=== PATIENT | female | born 2000 | race Caucasian/White ===

== ENCOUNTER 2024-02-21 22:10 | Emergency (ER) | payer BC, SELFPAY ==
[2024-02-21 22:43] VITALS: BP 128/80
[2024-02-22 01:23] VITALS: BMI 20.8
[2024-02-22 01:25] VITALS: BP 106/75
--- NOTE | 2024-02-22 01:50 | ED.GENMED ---
History of Present Illness
General
Chief Complaint: Allergic Reaction
Source: patient and family (Mom)
Exam Limitations: none
History of Present Illness
History of Present Illness:
24-year-old female presents the emergency department after eating a [employer] peanut butter cup. Patient does have a known peanut allergy since a young child. She states that she was 'through it 'and has been able to eat [employer] cups since sophomore
year of high school. While at college, her roommate has an airborne peanut allergy so she has not been able to eat peanut butter cups during her time at school. She came home and had 1 and had this allergic reaction. She ate 1 at 7 PM tonight.
She took 2 Benadryl prior to arrival. While waiting in the waiting room, she states that all symptoms have resolved. She does have an EpiPen but did not feel that it was severe enough to use. She does have a history of asthma and eczema. Denies
any symptoms at this time.
Review of Systems
Review of Systems
Allergies reviewed?: Yes
All Other Systems: ROS reviewed and negative except as documented in HPI and ROS
Constitutional: Reports no symptoms
EENT: Reports no symptoms
Respiratory: Reports no symptoms
Cardiac: Reports no symptoms
ABD/GI: Reports no symptoms
: Reports no symptoms
Musculoskeletal: Reports no symptoms
Skin: Reports rash
Neurological: Reports no symptoms
Endocrine: Reports no symptoms
Hematologic/Lymphatic: Reports no symptoms
Psychiatric: Reports anxiety
Phy Exam
General Physical Exam
General Presentation: well appearing and no apparent distress
General Skin: warm and dry
General Habitus: normal
General Mental: alert
General Hydration: appears well hydrated
ENT Exam
ENT Exam: EOMI, pharynx normal, neck supple and normocephalic
Eye Exam
Eye Exam: PERRL, cornea clear and conjunctiva normal
Cardiovascular Exam
Cardiovascular Exam: regular rate/rhythm, no edema, no murmur and normal peripheral pulses
Pulmonary Exam
Pulmonary Exam: lungs clear, no respiratory distress, no rales, no crackles, no rhonchi, no stridor, no wheezing and no cough
Gastrointestinal Exam
Gastrointestinal Exam: normal bowel sounds, non tender, soft, no organomegaly, no pulsatile mass and non distended
Neurological Exam
Neurological Exam: alert, oriented x3, no motor deficits and speech normal
Musculoskeletal Exam
Musculoskeletal Exam: full ROM and no edema
Skin Exam
Skin Exam: normal color, warm/dry, no rash and no petechia
Psychiatric Exam
Psychiatric Exam: normal mood/affect
Course
Vital Signs
Initial and Last Documented VS:
Initial Vital Signs
Temp Pulse Resp BP Pulse Ox
98.9 F 82 18 128/80 99
02/21/24 22:43 02/21/24 22:43 02/21/24 22:43 02/21/24 22:43 02/21/24 22:43
Last Documented Vital Signs
Temp Pulse Resp BP Pulse Ox
98.9 F 69 16 106/75 100
02/21/24 22:43 02/22/24 01:25 02/22/24 01:25 02/22/24 01:25 02/22/24 01:25
*Pulse Oximetry
Patient hypoxic: no
*Critical Care Note
Total Time (30-74mins, 75-104mins- exclusive of procedures): Not Applicable
ED Attending Note
-
Portions of this chart may have been created with voice recognition software.� Occasional wrong word or��sound alike� substitutions may have occurred due to the inherent limitations of voice recognition software.
Discharge Plan
Departure
Patient Disposition: Home (Routine Discharge)
Date of Disposition: 02/22/24
Time of Disposition: 01:53
Patient with high blood pressure during this ER visit?: No
Condition: Good
Discharge Problem:
Allergic to peanuts, Allergic reaction
Instructions: Peanut, tree nut, and seed allergy
Prescriptions:
New
diphenhydramine HCl [Benadryl] 25 mg capsule
25 mg PO TID PRN (Reason: allergy symptoms) Qty: 14 0RF
prednisone 50 mg Tablet
50 mg PO DAILY Qty: 5 0RF
epinephrine [EpiPen] 0.3 mg/0.3 mL Auto-Injector
0.3 mg IM .STAT PRN (Reason: anaphylaxis) Qty: 1 0RF
No Action
albuterol sulfate 90 mcg/actuation Hfa Aerosol Inhaler
2 puff INHALATION QID PRN (Reason: asthma)
norgestimate-ethinyl estradiol [Rqt-Rr-Oooulg] 0.18/0.215/0.25 mg-25 mcg Tablet
1 tab PO DAILY
Zyrtec 10 mg Capsule
10 mg PO DAILY PRN (Reason: allergies)
Referrals:
Hilario Levine MD [[facility]] -
Activity Restrictions/Additional Instructions:
It was a pleasure meeting you and taking part in your care. We hope for your continued healing and wellness.
Please read discharge instructions in their entirety. However, they are for general education and may not describe your exact diagnosis at discharge. Information on your ER visit and medical conditions were discussed with you along with appropriate
follow up information...
If indicated, please take your medications as instructed and indicated on discharge paperwork.
Please schedule a follow up appointment as directed. Call to schedule an appointment
Please return to the emergency department with ANY change in, persisting, or worsening of symptoms. If any of your symptoms do not improve, or persist, or become more severe within 6-12 hours, please return to the emergency department for further
care.
Please return to the emergency department if you develop a headache, neck pain/stiffness, fever greater than 100.4F, chest pain, shortness of breath, persistent nausea, vomiting, slurred speech, difficulty walking, numbness/tingling, weakness, signs
of infection or any other symptoms that are worrisome to you.
If you have any questions or concerns please do not hesitate to call the Hospital at or E-mail me directly at [email or web address]
Interventions
Interventions:
*Risk Screen - Suicide Last Done: 02/21/24 22:43
*General Assessment Last Done: 02/21/24 22:43
*Neglect/Abuse Screening Last Done: 02/21/24 22:43
ED- Fall Risk Assessment Last Done: 02/22/24 01:27
*ED COVID-19 Vaccine History Last Done: 02/21/24 22:43
ED- Cardiac Assessment Last Done: 02/22/24 01:27
ED- Pulmonary Assessment Last Done: 02/22/24 01:27
ED-Skin Assessment Last Done: 02/22/24 01:27
Discharge Date and Time
Print Language: BULGARIAN
[2024-02-22] MEDS: DECADRON 10 MG PO (02:05)
== END 2024-02-22 02:10 | disposition home or self-care (01) ==
LOC: EMR 22:10
PROVIDERS: EMERGENCY PHYSICIAN Student in an Organized Health Care Education/Training Program
DX: T78.1XXA Other adverse food reactions, not elsewhere classified, initial encounter (principal); X58.XXXA Exposure to other specified factors, initial encounter; J45.909 Unspecified asthma, uncomplicated; Z91.010 Allergy to peanuts
CPT/HCPCS: 99283